=== PATIENT | female | born 1950 | race Caucasian/White ===

== ENCOUNTER 2016-07-09 23:31 | Emergency (ER) | payer SELFPAY | END 2016-07-10 01:06 | disposition left against medical advice (07) | LOC: ER1 23:31 | DX: Z53.21 Procedure and treatment not carried out due to patient leaving prior to being seen by health care provider (principal) ==

== ENCOUNTER → 2016-07-15 | Outpatient (CLI) | payer MEDICARE ==
[~2016-07-15] MED LIST: ASPIRIN EC81 MG PO; LISINOPRIL10 MG PO; NEURONTIN 100100 MG PO; NORCO 5-325 TA1 EACH PO; NORVASC 5 MG TAB5 MG PO; PRAVACHOL20 MG PO; TYLENOL 500 MG500 MG PO; VITAMIN D400 UNI1 PO
== END ==
LOC: RAD 11:37
DX: M54.2 Cervicalgia (principal); M54.5 Low back pain; M54.6 Pain in thoracic spine; M50.323 Other cervical disc degeneration at C6-C7 level
CPT/HCPCS: 72040; 72072; 72100

== ENCOUNTER 2016-07-17 19:37 | Emergency (ER) | payer MEDICARE ==
[2016-07-17 23:41] LABS: HEMOGLOBIN 14.4 gm/dl (12.3-15.3); RED BLOOD COUNT 5.06 M/UL (4.00-5.10); WHITE BLOOD COUNT 15.5 K/UL (4.5-11.0)
[2016-07-18] LABS: BUN/CREATININE RATIO 16 (0-10)
== END 2016-07-18 06:29 | disposition home or self-care (01) ==
LOC: ER1 19:37
PROVIDERS: Family Medicine
DX: K52.9 Noninfective gastroenteritis and colitis, unspecified (principal); I10 Essential (primary) hypertension; E78.5 Hyperlipidemia, unspecified; K21.9 Gastro-esophageal reflux disease without esophagitis; Z86.73 Personal history of transient ischemic attack (TIA), and cerebral infarction without residual deficits; Z79.891 Long term (current) use of opiate analgesic; Z79.899 Other long term (current) drug therapy
CPT/HCPCS: 36415; 80053; 81001; 82150; 82550; 82553; 83605; 83690; 83874; 84484; 85025; 96361; 96374; 99284; J2270; J2405

== ENCOUNTER 2016-08-09 20:13 | Observation (INO) | payer MEDICARE ==
[~2016-08-09] VITALS: Ht 165.1 cm; Wt 72.6 kg
[2016-08-09 21:39] LABS: HEMOGLOBIN 12.8 gm/dl (12.3-15.3); RED BLOOD COUNT 4.5 M/UL (4.00-5.10); WHITE BLOOD COUNT 11.1 K/UL (4.5-11.0)
[2016-08-09 22:08] LABS: BUN/CREATININE RATIO 14 (0-10)
[2016-08-10] MEDS ORDERED: NEURONTIN 100100 MG PO (16:20)
[2016-08-10] MEDS ORDERED: LISINOPRIL10 MG PO (16:20)
[2016-08-10] MEDS ORDERED: NORCO 5-325 TA1 EACH PO (16:21)
[2016-08-10] MEDS ORDERED: VITAMIN D400 UNI1 PO (16:21)
[2016-08-10] MEDS ORDERED: NORVASC 5 MG TAB5 MG PO (16:21)
[2016-08-11] MEDS ORDERED: PRAVACHOL20 MG PO (07:50)
[2016-08-11] MEDS ORDERED: ASPIRIN EC81 MG PO (15:29)
[2016-08-11] MEDS ORDERED: TYLENOL 500 MG500 MG PO (15:30)
== END 2016-08-11 15:48 | disposition home or self-care (01) ==
LOC: ER1 20:13 → ZEROF 23:03 → MED SURG 4 08-10 14:23
PROVIDERS: Family Medicine; ADMIT Internal Medicine
DX: H53.2 Diplopia (principal); R42 Dizziness and giddiness; H53.8 Other visual disturbances; I10 Essential (primary) hypertension; E78.5 Hyperlipidemia, unspecified; Z79.891 Long term (current) use of opiate analgesic; Z79.899 Other long term (current) drug therapy; Z90.710 Acquired absence of both cervix and uterus; Z91.041 Radiographic dye allergy status
CPT/HCPCS: 36415; 70450; 70496; 70498; 70551; 71010; 80053; 80061; 82550; 82553; 82607; 83735; 83874; 84100; 84443; 84484; 85025; 86140; 86780; 93005; 96372; 96374; 96375; 99285; G0378; J1200; J1650; J2930; J7050; Q9963

== ENCOUNTER → 2016-09-14 | Outpatient (CLI) | payer MEDICARE | LOC: RT 11:56 | DX: R55 Syncope and collapse (principal) ==